=== PATIENT | female | born 1980 ===

== ENCOUNTER 2020-02-18 18:03 | Emergency (ER) | payer OTHER ==
[~2020-02-18] VITALS: Ht 157.5 cm; Wt 72.6 kg
[~2020-02-18 18:03] MED LIST: AMOX1TAB12 PO; DOLOGEN CAPLET1 EACH PO; ESTAZOLAM1 MG; FIORICET 50-301 EACH PO; PRISTIQ ER100 MG; PROVENTIL HFA6.7 GM IH; TUSICOF LIQUID120 ML PO
== END 2020-02-18 19:56 | disposition home or self-care (01) ==
LOC: ER 18:03
DX: K29.60 Other gastritis without bleeding (principal); R10.13 Epigastric pain; R00.2 Palpitations; G25.2 Other specified forms of tremor; F41.8 Other specified anxiety disorders; D50.8 Other iron deficiency anemias

== ENCOUNTER 2020-10-18 00:56 | Emergency (ER) | payer OTHER ==
[~2020-10-18] VITALS: Ht 160 cm; Wt 76.2 kg
[2020-10-18] MEDS ORDERED: MOBIC15 MG PO (03:50)
[2020-10-18] MEDS ORDERED: ORPHENADRINE C100 MG PO (03:50)
== END 2020-10-18 03:54 ==
LOC: ER 00:56
DX: M62.838 Other muscle spasm (principal)

== ENCOUNTER 2020-11-16 14:18 | Emergency (ER) | payer OTHER ==
[~2020-11-16] VITALS: Ht 160 cm; Wt 72.6 kg
[~2020-11-16 14:18] MED LIST changes: +MOBIC15 MG PO; +ORPHENADRINE C100 MG PO
[2020-11-16] MEDS ORDERED: NAPROXEN500 MG PO (19:05)
[2020-11-16] MEDS ORDERED: PEPCID AC20 MG PO (19:05)
[2020-11-16] MEDS ORDERED: SKELAXIN800 MG PO (19:05)
== END 2020-11-16 18:54 | disposition home or self-care (01) ==
LOC: ER 14:18
DX: R07.89 Other chest pain (principal); M62.838 Other muscle spasm; Z03.818 Encounter for observation for suspected exposure to other biological agents ruled out